=== PATIENT | male | born 1980 | race Caucasian/White ===

== ENCOUNTER 2020-05-29 05:42 | Emergency (ER) | payer MEDICAID ==
[~2020-05-29] VITALS: Ht 167.6 cm; Wt 126.6 kg
[2020-05-29 05:50] VITALS: Ht 167.6 cm; Wt 126.6 kg
[2020-05-29 06:48] LABS: UA SPECIFIC GRAVITY >=1.030 (1.005-1.035); urine erythrocyte NEGATIVE (NEGATIVE)
[2020-05-29 07:06] LABS: BASOPHIL % 0.3 % (0-2); PLATELET COUNT 246 x10^3mcL (130-400); RED CELL DISTRIBUTION WIDTH 14.7 % (11.5-14.5)
[2020-05-29 07:11] LABS: CALCIUM 8.6 mg/dL (8.5-10.1); CARBON DIOXIDE 24.6 mmol/L (21-32); CREATININE SERUM 1.5 mg/dL (0.7-1.3); POTASSIUM SERUM 3.5 mmol/L (3.5-5.1)
[2020-05-29 07:15] LABS: BILIRUBIN TOTAL 0.55 mg/dL (0.20-1.00); CHOLESTEROL/HDL RATIO 3.9; TOTAL PROTEIN, SERUM 6.8 g/dL (6.4-8.2)
[2020-05-29 07:19] LABS: ALBUMIN 3.2 g/dL (3.4-5.0)
[2020-05-29 07:21] LABS: FREE T4 1.2 ng/dL (0.76-1.46); FREE THYROXINE INDEX 2.4 ug/dL (1.4-4.5); T4(THYROXINE) 5.9 ug/dL (4.7-13.3)
[2020-05-29 07:25] LABS: microscopic required? YES
[2020-05-29 07:37] LABS: T3 TOTAL 0.94 ng/mL
[2020-05-29 09:10] VITALS: BP 157/96
[2020-05-29 10:19] LABS: AMPHETAMINE QUAL UR NONE DETECTED (See below)
== END 2020-05-29 09:10 | disposition home or self-care (01) ==
LOC: ED 05:42
PROVIDERS: Specialist
DX: I10 Essential (primary) hypertension (principal); F15.921 Other stimulant use, unspecified with intoxication delirium; E66.01 Morbid (severe) obesity due to excess calories; E11.9 Type 2 diabetes mellitus without complications
CPT/HCPCS: 83880; 84439; J0360; J3490; J7030; Q0092